=== PATIENT | female | born 1975 | race Caucasian/White ===

== ENCOUNTER 2022-04-16 06:29 | Inpatient (IN) ==
[2022-04-16] MEDS ORDERED: ANCEF VIAL 1 GRAM IVP ONE (06:45)
[2022-04-16] MEDS: D5 1/2 NS 1,000 ML 1,000 ML IV SCH ×5 (06:45→23:43)
[2022-04-16] MEDS ORDERED: LR 1,000 ML IV 1,000 ML IV ONE (06:47)
[2022-04-16] MEDS ORDERED: NS 100 ML IV 100 ML ONE (06:47)
[2022-04-16] MEDS ORDERED: ProvayBLUE 0.5% ONE (06:48)
[2022-04-16] MEDS ORDERED: BETADINE SOLN ONE (06:49)
[2022-04-16] MEDS ORDERED: ZEMURON 100 MG VIAL ONE (06:49)
[2022-04-16] MEDS ORDERED: PRECEDEX INJ VIAL IVP ONE (06:49)
[2022-04-16] MEDS ORDERED: PEPCID 20 MG VIAL ONE (06:49)
[2022-04-16] MEDS ORDERED: ZOFRAN INJ 4 MG VIAL ONE (06:49)
[2022-04-16] MEDS ORDERED: DECADRON INJ ONE (06:49)
[2022-04-16] MEDS ORDERED: DIPRIVAN VIAL 20 ML ONE (06:49)
[2022-04-16] MEDS ORDERED: BENADRYL INJ 50 MG VIAL ONE (06:50)
[2022-04-16] MEDS ORDERED: DILAUDID INJ ONE (06:57)
[2022-04-16 07:07] VITALS: BMI 27.4
[2022-04-16] MEDS ORDERED: MAGNESIUM SULFATE 1 GRAM/100 mL PREMIX 1 G/100 ML BAG IV ONE (07:16)
[2022-04-16] MEDS ORDERED: KETAMINE HCL ONE (07:17)
[2022-04-16] MEDS ORDERED: OFIRMEV IV 1000 MG VIAL 1,000 MG/100 ML VIAL IV ONE (07:22)
[2022-04-16] MEDS ORDERED: EPHEDRINE SULFATE INJ ONE (08:00)
[2022-04-16] MEDS ORDERED: ROBINUL ONE (08:05)
[2022-04-16] MEDS ORDERED: FENTANYL VIAL INJ 100 mcg ONE (08:24)
[2022-04-16] MEDS ORDERED: BRIDION ONE (09:29)
[2022-04-16] MEDS: DILAUDID INJ IVP PRN ×4 (09:50→10:25)
[2022-04-16] MEDS ORDERED: BENADRYL INJ 50 MG VIAL IVP PRN ×2 (09:53→10:31)
[2022-04-16] MEDS ORDERED: ZOFRAN INJ 4 MG VIAL IVP PRN ×2 (09:53→10:31)
[2022-04-16] MEDS ORDERED: BARHEMSYS INJ IVP PRN (09:53)
[2022-04-16] MEDS ORDERED: PHENERGAN INJ 25 MG IM PRN (09:53)
[2022-04-16] MEDS: MORPHINE SULFATE PCA 30 MG IVP PRN (11:16)
[2022-04-16] MEDS: TORADOL 30 MG VIAL IVP PRN ×2 (12:04→22:01)
[2022-04-16] MEDS: MYLICON TAB 80 MG CHEW PO PRN ×2 (16:42→22:01)
[2022-04-17] MEDS: MORPHINE SULFATE PCA 30 MG IVP PRN (00:32)
[2022-04-17] MEDS: D5 1/2 NS 1,000 ML 1,000 ML IV SCH ×6 (03:27→23:05)
[2022-04-17 05:19] LABS: HEMATOCRIT 37.4 % (36.0-47.0); HEMOGLOBIN 12.8 g/dL (12.0-16.0)
[2022-04-17 05:20] LABS: BLOOD UREA NITROGEN 3 mg/dL (7-18); CALCIUM 8.3 mg/dL (8.5-10.1); CARBON DIOXIDE 27.6 mmol/L (21-32); CHLORIDE 106 mmol/L (98-107); CREATININE 0.48 mg/dL (0.55-1.02); SODIUM 140 mmol/L (136-145); eGFR NON BLACK RACES > 60 (>60)
[2022-04-17 05:25] LABS: BASOPHILS % (AUTO) 0.3 % (0.2-1.0); EOSINOPHILS # (AUTO) 0.1 x10^3/uL (0.0-0.2); EOSINOPHILS % (AUTO) 0.5 % (0.9-2.9); LYMPHOCYTES # (AUTO) 2.6 X10^3/uL (1.3-2.9); LYMPHOCYTES % (AUTO) 19.1 % (21.0-51.0); MEAN CORPUSCULAR HGB CONC 34.4 g/dL (33.0-35.0); MEAN CORPUSCULAR VOLUME 93.1 fL (80.0-100.0); MEAN PLATELET VOLUME 9.6 fL (7.4-11.0); MONOCYTES % (AUTO) 7.7 % (0.0-13.0); NEUTROPHILS # (AUTO) 9.9 x10^3/uL (2.2-4.8); NEUTROPHILS % (AUTO) 72.4 % (42.0-75.0); RED BLOOD COUNT 4.02 X10^6/uL (3.5-5.4); RED CELL DISTRIBUTION WIDTH 13.1 % (11.6-16.5); WHITE BLOOD COUNT 13.6 X10^3/uL (3.6-10.0)
[2022-04-17] MEDS ORDERED: K-DUR TAB 20 MEQ PO PRN (06:08)
[2022-04-17] MEDS: MYLICON TAB 80 MG CHEW PO PRN ×2 (06:52→18:10)
[2022-04-17] MEDS ORDERED: MOTRIN TAB 800 MG PO PRN (07:22)
[2022-04-17] MEDS ORDERED: AMBIEN PO PRN (07:23)
[2022-04-17] MEDS: COLACE CAP 100 MG PO SCH ×2 (08:37→20:57)
[2022-04-17] MEDS: PERCOCET TAB 5/325 MG PO PRN ×4 (08:38→23:05)
[2022-04-17] MEDS: ESTRACE PO SCH (08:38)
[2022-04-17] MEDS: BACTROBAN TOPICAL OINT TOP SCH ×2 (13:37→21:00)
[2022-04-18] MEDS: D5 1/2 NS 1,000 ML 1,000 ML IV SCH ×3 (02:10→06:09)
[2022-04-18] MEDS: BACTROBAN TOPICAL OINT TOP SCH (05:24)
[2022-04-18] MEDS: PERCOCET TAB 5/325 MG PO PRN (06:56)
[2022-04-18] MEDS: MYLICON TAB 80 MG CHEW PO PRN (07:58)
[2022-04-18] MEDS: COLACE CAP 100 MG PO SCH (07:59)
[2022-04-18] MEDS: ESTRACE PO SCH (08:00)
[2022-04-18 08:45] VITALS: BP 134/88
== END 2022-04-18 09:40 | disposition home or self-care (01) | DRG 743 ==
LOC: MED/SURG 06:29
PROVIDERS: ADMIT Specialist; ATTEND Specialist
DX: N94.4 Primary dysmenorrhea; I10 Essential (primary) hypertension; R10.2 Pelvic and perineal pain; N92.5 Other specified irregular menstruation; E11.65 Type 2 diabetes mellitus with hyperglycemia; N80.9 Endometriosis, unspecified; Z72.0 Tobacco use